=== PATIENT | female | born 1960 | race Caucasian/White ===

== ENCOUNTER 2017-04-25 20:33 | Emergency (ER) | payer OTHER ==
[~2017-04-25] VITALS: Ht 152.4 cm; Wt 99.0 kg
[2017-04-25] MEDS ORDERED: TraMADol HCL 50 MG TABLET PO ONE (21:15)
[2017-04-25 22:03] VITALS: BP 124/72
== END 2017-04-25 22:06 | disposition home or self-care (01) ==
LOC: EMS 20:34
DX: M17.11 Unilateral primary osteoarthritis, right knee (principal); G89.29 Other chronic pain
CPT/HCPCS: 29530; 99283